=== PATIENT | female | born 1960 | race Caucasian/White ===

== ENCOUNTER → 2017-04-08 | Outpatient (CLI) | payer OTHER ==
--- NOTE | 2017-04-08 14:25 | MM ---
Reason for exam: screening (asymptomatic). Baseline mammogram. History: Patient is postmenopausal. Family history of breast cancer in maternal aunt at age 60. Physical Findings: Nurse Summary: 0.5cm nodule in the left breast at 3 o'clock (nurse mj). MG Screening Mammo w CAD Bilateral CC and MLO view(s) were taken. There are scattered fibroglandular densities. Finding: There are typically benign round calcifications in both breasts. There is no discrete abnormality. These results were verbally communicated with the patient and result sheet given to the patient on 04/08/17. ASSESSMENT: Incomplete: need additional imaging evaluation, BI-RAD 0 RECOMMENDATION: Ultrasound of the left breast. (palpable by patient) [facility] will attempt to contact patient to return for ultrasound.
--- NOTE | 2017-04-08 14:26 | USB ---
Reason for exam: additional evaluation requested from abnormal screening. History: Patient is postmenopausal. Family history of breast cancer in maternal aunt at age 60. Physical Findings: Breast exam preformed at baseline screening. US Breast Workup Limited LT Left breast ultrasound demonstrates no cystic or solid lesion seen. BB at 3 o'clock. These results were verbally communicated with the patient and result sheet given to the patient on 04/08/17. ASSESSMENT: Negative, BI-RAD 1 RECOMMENDATION: Return to routine screening mammogram schedule for both breasts.
== END | disposition home or self-care (01) ==
LOC: RADMAMWWP 12:45
PROVIDERS: ATTEND Internal Medicine
DX: Z12.31 Encounter for screening mammogram for malignant neoplasm of breast (principal); R92.8 Other abnormal and inconclusive findings on diagnostic imaging of breast
CPT/HCPCS: 77067

== ENCOUNTER → 2017-04-12 | Outpatient (CLI) | payer OTHER ==
[2017-04-12 07:31] LABS: Basophils # (A) 0.1 k/uL (0-0.2); Basophils % (A) 1 %; Eosinophils # (A) 0.4 k/uL (0-0.7); Eosinophils % (A) 6 %; HCT 52.5 % (34.0-46.0); HGB 15.9 gm/dL (11.4-16.0); Hypochromasia Slight; Lymphocytes # (A) 1.7 k/uL (1.0-4.8); Lymphocytes % (A) 24 %; MCH 29.9 pg (25.0-35.0); MCHC 30.3 g/dL (31.0-37.0); MCV 98.8 fL (80.0-100.0); Mean Platelet Volume 8.4; Monocytes # (A) 0.3 k/uL (0-1.0); Monocytes % (A) 4 %; Neutrophils # (A) 4.4 k/uL (1.3-7.7); Neutrophils % (A) 64 %; Platelet Count 191 k/uL (150-450); RBC 5.31 m/uL (3.80-5.40); RDW 13.2 % (11.5-15.5); WBC 6.9 k/uL (3.8-10.6)
[2017-04-12 08:12] LABS: ALT 22 U/L (9-52); AST 19 U/L (14-36); Alkaline Phosphatase 93 U/L (38-126); Anion Gap 9 mmol/L; Blood Urea Nitrogen 16 mg/dL (7-17); Calcium 9.7 mg/dL (8.4-10.2); Carbon Dioxide 28 mmol/L (22-30); Chloride 105 mmol/L (98-107); Cholesterol 205 mg/dL (<200); Glucose 111 mg/dL (74-99); HDL Cholesterol 48 mg/dL (40-60); LDL Cholesterol,Calculated 126 mg/dL (0-99); Potassium 4.9 mmol/L (3.5-5.1); Sodium 142 mmol/L (137-145); Total Bilirubin 0.4 mg/dL (0.2-1.3); Total Protein 7.1 g/dL (6.3-8.2); Triglycerides 155 mg/dL (<150)
[2017-04-12 10:28] LABS: Erythrocyte Sedimentation Rate 2 mm/hr (0-20)
--- NOTE | 2017-04-12 21:40 | XR ---
EXAMINATION TYPE: XR hand complete bilateral DATE OF EXAM: 04/12/2017 COMPARISON: NONE HISTORY: 57-year-old female polyarthropathy, right greater than left TECHNIQUE: 3 views each side FINDINGS: Mild osteophytic changes at the base of the thumbs and at the right first IP joint. Mild scattered os teophytic spurring in the right second and third DIP joints. No marginal erosions. A small pericapsul ar calcification along the ulnar aspect of the second PIP joint could represent a fragmented spur or calcific capsulitis. No acute fracture, subluxation, or dislocation. Metacarpal compartment appears i ntact. IMPRESSION: 1. Mild osteoarthritic changes especially at the base of both thumbs, right first MCP and IP joints, and right second and third DIP joints. 2. Tiny calcification along the ulnar aspect of the right second DIP joint could represent a tiny loo se body, fragmented spur, or calcific capsulitis. 3. No specific findings of an inflammatory arthropathy at this time.
== END | disposition home or self-care (01) ==
LOC: LABWHC1 06:59
PROVIDERS: ATTEND Internal Medicine
DX: M19.042 Primary osteoarthritis, left hand (principal); M19.041 Primary osteoarthritis, right hand; E78.2 Mixed hyperlipidemia; I10 Essential (primary) hypertension
CPT/HCPCS: 36415; 80053; 80061; 85025; 85652; 86431

== ENCOUNTER 2017-04-26 14:08 | Emergency (ER) | payer OTHER ==
[2017-04-26 14:18] VITALS: BP 136/74; PULSE 61; RESP 2; TEMP 97.9
[2017-04-26] MEDS ORDERED: PROPARACAINE 0.5% OPHTH DROPS 15 ML BTL LEFT EYE STA (14:31)
[2017-04-26] MEDS ORDERED: PROPARACAINE 0.5% OPHTH DROPS 15 ML BTL ONE (14:32)
--- NOTE | 2017-04-26 14:51 | ED ---
Eye Problem HPI - General Chief complaint: Eye Problems Stated complaint: Eye injury Time Seen by Provider: 04/26/17 14:23 Source: patient Mode of arrival: ambulatory Limitations: no limitations - History of Present Illness Initial comments: 7 years old female was trying to take the short of the anger unfortunately it ricocheted in her left eye since then she experienced excruciating pain had a hard time keeping her eyes open and no other injury to the face or the facial bones, since then her vision been blurry slightly she wears glasses at that time she had no glasses on at that time and she has no history of glaucoma or any other eye diseases, not sure about her tetanus status - Related Data Home Medications Medication Instructions Recorded Confirmed ALPRAZolam [Xanax] 0.5 mg PO BID PRN 04/26/17 04/26/17 Albuterol Inhaler [Ventolin Hfa 1 - 2 puff INHALATION RT-Q6H PRN 04/26/17 Inhaler] Aspirin/Acetaminophen/Caffeine 2 tab PO Q8H PRN 04/26/17 04/26/17 [Excedrin Extra Strength Caplet] Escitalopram [Lexapro] 20 mg PO DAILY 04/26/17 04/26/17 Previous Rx's Medication Instructions Recorded Erythromycin Ophth Oint [Romycin 1 applic LEFT EYE QID #1 gm 04/26/17 Ophth Oint] HYDROmorphone [Dilaudid] 1 mg PO Q4HR PRN #10 tab 04/26/17 Allergies Allergy/AdvReac Type Severity Reaction Status Date / Time morphine Allergy Unknown Verified 04/26/17 14:24 Penicillins Allergy Rash/Hives Verified 04/26/17 14:24 Sulfa (Sulfonamide Allergy Rash/Hives Verified 04/26/17 14:24 Antibiotics) moxifloxacin [From Avelox] AdvReac Unknown Verified 04/26/17 14:24 Review of Systems ROS Statement: Those systems with pertinent positive or pertinent negative responses have been documented in the HPI. ROS Other: All systems not noted in ROS Statement are negative. Past Medical History Past Medical History: No Reported History History of Any Multi-Drug Resistant Organisms: None Reported Past Surgical History: Section Past Psychological History: Anxiety, Depression Smoking Status: Current every day smoker Past Alcohol Use History: None Reported Past Drug Use History: Marijuana General Exam - General Exam Comments Initial Comments: General: The patient is awake and alert, in no distress, and does not appear acutely ill. Skin: Skin is warm and dry and no rashes or lesions are noted. Eye: Pupils are equal, round and reactive to light and accommodation left eye is quite watery and congested, local anesthetic was used after the first and I made the abrasion very clear she has a quarter: Abrasion which is covering about one fourth of the cornea globes globe is intact no injury to the upper or lower eyelids no other injuries noticed extraocular muscles seems intact Ears, nose, mouth and throat: There are moist mucous membranes and no oral lesions. Neck: The neck is supple, there is no tenderness or JVD. Cardiovascular: There is a regular rate and rhythm. No murmur, rub or gallop is appreciated. Respiratory: To auscultation bilateral, no wheezing no rhonchi no distress respiratory myers noticed Gastrointestinal: Soft, non-distended, non-tender abdomen without masses or organomegaly noted. There is no rebound or guarding present. Bowel sounds are unremarkable. Back: There is no tenderness to palpation in the midline. There is no obvious deformity. Musculoskeletal: Normal ROM, no tenderness, There is no pedal edema. There is no calf tenderness or swelling. No cords were appreciated. Neurological: CN II-XII intact, Cranial nerves III through XII are intact. There are no obvious motor or sensory deficits. Coordination appears grossly intact. Speech is normal. Psychiatric: Cooperative, appropriate mood & affect, normal judgment. Limitations: no limitations Course Vital Signs 04/26/17 14:16 Temperature 97.9 F Pulse Rate 61 Respiratory 2 L Rate Blood Pressure 136/74 O2 Sat by Pulse 99 Oximetry Disposition Clinical Impression: Corneal abrasion Disposition: HOME SELF-CARE Condition: Good Instructions: Abrasion (ED) Additional Instructions: She is advised to see Dr. Crockett on Friday, if his symptoms get worse she ought to come back to ER Prescriptions: Erythromycin Ophth Oint [Romycin Ophth Oint] 1 applic LEFT EYE QID #1 gm HYDROmorphone [Dilaudid] 1 mg PO Q4HR PRN #10 tab PRN Reason: Pain Referrals: Faustino Baptiste MD [Primary Care Provider] - 1-2 days Buck Crockett MD [STAFF PHYSICIAN] - 1-2 days
== END 2017-04-26 14:57 | disposition home or self-care (01) ==
LOC: EC 14:08
DX: S05.02XA Injury of conjunctiva and corneal abrasion without foreign body, left eye, initial encounter (principal); F32.9 Major depressive disorder, single episode, unspecified; F41.9 Anxiety disorder, unspecified; F17.200 Nicotine dependence, unspecified, uncomplicated; Z79.899 Other long term (current) drug therapy; Z88.0 Allergy status to penicillin; Z88.1 Allergy status to other antibiotic agents; Z88.2 Allergy status to sulfonamides; Z88.5 Allergy status to narcotic agent; W22.8XXA Striking against or struck by other objects, initial encounter; Y93.89 Activity, other specified
CPT/HCPCS: 99283

== ENCOUNTER → 2018-09-04 | Outpatient (CLI) | payer OTHER ==
--- NOTE | 2018-09-04 12:27 | XR ---
EXAMINATION TYPE: XR abdomen complete w decub DATE OF EXAM: 09/04/2018 COMPARISON: NONE HISTORY: Pain TECHNIQUE: Supine, upright, and left side down lateral decubitus views of the abdomen are obtained. FINDINGS: Hypertrophic change of the spine. Bowel gas pattern nonspecific. Extensive retained fecal d ebris. Arthropathy of the hips. Osteitis of the symphysis pubis. Calcification the pelvis likely vascular. M ild left sacroiliitis suspected. Closure spine may represent a scoliotic curvature. IMPRESSION: Nonspecific abdomen with extensive retained fecal debris correlate for constipation.
== END | disposition home or self-care (01) ==
LOC: RADXRMAIN 11:33
PROVIDERS: ATTEND Internal Medicine
DX: R10.9 Unspecified abdominal pain (principal)
CPT/HCPCS: 74021

== ENCOUNTER → 2018-09-08 | Outpatient (CLI) | payer OTHER ==
--- NOTE | 2018-09-08 14:19 | CT ---
EXAMINATION TYPE: CT abdomen pelvis wo con DATE OF EXAM: 09/08/2018 HISTORY: Left sided pain with history of shingles on flank CT DLP: 1500 mGycm. Automated Exposure Control for Dose Reduction was Utilized. TECHNIQUE: CT scan of the abdomen and pelvis is performed without oral or IV contrast. COMPARISON: NONE FINDINGS: Within the limitations of a non-contrast study, the following observations are made. LUNG BASES: Coronary artery calcification is partially visualized which is noted marker for underlyin g coronary artery disease. LIVER/GB: Liver is diffusely low dense consistent with fatty infiltration. PANCREAS: No significant abnormality is seen. SPLEEN: No significant abnormality is seen. ADRENALS: No significant abnormality is seen. KIDNEYS: Central calcifications left kidney strongly suspected vascular in etiology.. No hydronephros is or obstructing ureteral calculi are present bilaterally. No intraluminal calculi are seen in poorl y distended bladder. BOWEL: Bowel slightly suboptimally evaluated due to lack of enteric contrast. No suspicious small or large bowel dilatation. Occasional colonic diverticula sigmoid colon with moderate to severe wall thi ckening mid to distal sigmoid colon. No surrounding inflammatory change is present. GENITAL ORGANS: Anteverted uterus is seen. LYMPH NODES: No greater than 1cm abdominal or pelvic lymph nodes are appreciated. OSSEOUS STRUCTURES: Multilevel spurring and disc space narrowing throughout the lumbar spine. Transit ional type vertebra lumbosacral junction. Marked disc space narrowing with endplate sclerosis L5-S1 l evel. Moderate multilevel disc space narrowing with vacuum disc phenomenon. Posterior disc herniation s and spur disc complexes efface the anterior thecal sac at several levels in the lumbar spine. OTHER: Mild calcified plaque of the aorta extends into branch vessels. IMPRESSION: Cannot exclude a mild acute uncomplicated diverticulitis sigmoid colon due to diverticula with colonic wall thickening. However degree of wall thickening is more prominent than suspected for degree of inflammatory change and follow-up colonoscopy after treatment is advised to rule out under lying neoplasm. No acute finding is otherwise visualized.
== END | disposition home or self-care (01) ==
LOC: RADCTMAIN 13:18
PROVIDERS: ATTEND Internal Medicine
DX: R10.9 Unspecified abdominal pain (principal)
CPT/HCPCS: 74176

== ENCOUNTER → 2018-09-28 | Outpatient (CLI) | payer OTHER ==
--- NOTE | 2018-09-28 21:32 | XR ---
EXAMINATION TYPE: XR tibia fibula RT DATE OF EXAM: 09/28/2018 COMPARISON: NONE HISTORY: Pain TECHNIQUE: Two views are submitted. FINDINGS: The osseous structures are intact. Calcaneal spurs are noted. Arthritic change involving the knee otf nt. IMPRESSION: 1. Arthropathy 2. Calcaneal spurs.
--- NOTE | 2018-09-28 21:37 | XR ---
EXAMINATION TYPE: XR knee complete RT DATE OF EXAM: 09/28/2018 COMPARISON: NONE HISTORY: Pain TECHNIQUE: Four views are submitted. FINDINGS: Mild diffuse osteopenia. Mild narrowing of the medial compartment knee joint moderate narrowing of th e patellofemoral joint with hypertrophic spurring. Small amount of fluid in the suprapatellar bursa. Osseous structures are intact. No acute fracture seen. IMPRESSION: 1. No acute fracture or dislocation. 2. Arthritic changes with most marked findings involving the patellofemoral joint.
== END | disposition home or self-care (01) ==
LOC: RADXRMAIN 16:32
PROVIDERS: ATTEND Internal Medicine
DX: M17.11 Unilateral primary osteoarthritis, right knee (principal)

== ENCOUNTER → 2019-02-05 | Outpatient (CLI) | payer OTHER ==
--- NOTE | 2019-02-06 00:32 | MR ---
EXAMINATION TYPE: MR knee RT wo con DATE OF EXAM: 02/05/2019 COMPARISON: None FINDINGS: There is mild knee joint effusion. There is intact anterior and posterior cruciate ligament s. There is minor spurring on the patella. There is narrowing of patellofemoral joint space. There is increased signal in the posterior horn medial meniscus. The anterior horn medial meniscus is intact. The lateral meniscus appears intact. Collateral ligaments are intact. There is no evidence o f a fracture. There is minor spurring of the femoral and tibial condyles. I see no focal bone destruc tion. There is no evidence for fracture. There is 4 x 1.5 cm popliteal cyst. HISTORY: Right knee pain Impression Knee joint effusion. Mild osteoarthritis. Horizontal tear within the posterior horn medial meniscus. No evidence of ligamentous tear. Popliteal cyst.
== END | disposition home or self-care (01) ==
LOC: RADMRIMAIN 06:44
PROVIDERS: ATTEND Orthopaedic Surgery
DX: S83.241A Other tear of medial meniscus, current injury, right knee, initial encounter (principal); M17.11 Unilateral primary osteoarthritis, right knee